=== PATIENT | male | born 1965 | race Caucasian/White ===

== ENCOUNTER 2016-03-18 08:10 | Inpatient (IN) | payer OTHER ==
[2016-03-18] VITALS (9 sets, daily range): BP systolic 84–120; BP diastolic 48–67
[~2016-03-18] VITALS: Ht 182.9 cm; Wt 70.0 kg
--- NOTE | 2016-03-18 10:13 | DIAGNOSTIC IMAGING REPORT ---
PROCEDURE: XR FOREARM - LEFT INDICATION: CELLULITIS TECHNIQUE: AP and lateral views. COMPARISON: None. FINDINGS: Osseous structures are normal. Soft tissue swelling, no foreign bodies. IMPRESSION: 1. Normal left forearm. Soft tissue swelling.
--- NOTE | 2016-03-18 11:37 | DIAGNOSTIC IMAGING REPORT ---
PROCEDURE: US SOFT TISSUE ANYWHERE INDICATION: SWOLLEN LEFT ARM WITH INFECTION TECHNIQUE: Carr scale and color Doppler sonographic images of the ulnar aspect of the left proximal forearm. COMPARISON: Comparison made radiographs of the left forearm earlier today (03/18/2016). FINDINGS: There is a large 8.7 x 3.2 x 4.3 cm ovoid hypoechoic heterogeneous area in the proximal ulnar aspect of the left forearm. This is associated increased vascularity, but no evidence of significant fluid. Thickened linear areas of signal in the lesion compatible with chronic thickening and superficial venous structures. IMPRESSION: 1. There is a large 8.7 x 3.2 x 4.3 cm hypoechoic heterogeneous area in the proximal left forearm consistent with phlegmon or hematoma. 2. Findings discussed with Dr. Jimy Weaver
--- NOTE | 2016-03-18 12:10 | ED CLINICAL REPORT ---
Clinical Report - Physicians/Mid Levels [facility] [address] [place] [address] 03/18/2016 8:12 Patient: TAYLOR PINTO III Time Seen: 09:39 Mar 18 2016. Arrived- By private vehicle. Historian- patient. CPT: ER phys charges level 5 (#[id number]). HISTORY OF PRESENT ILLNESS Chief Complaint: Chief Complaint- ( Left Forearm swelling due to heroin use.). and Injury to left forearm. 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 ( IVDA heroin). Patient is experiencing severe pain. No other injury. REVIEW OF SYSTEMS The patient has had swelling. No tingling, numbness, weakness, suspected foreign body or skin laceration. No fatigue, fever, muscle aches, mouth sores or sore throat. No calf pain, chest pain, cough, difficulty breathing or abdominal pain. No diarrhea, nausea, vomiting, joint pain or weakness. No diabetic symptoms, easy bruising or difficulty with urination. The patient has had chills and skin rash and experienced sweats. All systems otherwise negative, except as recorded above. PAST HISTORY See nurses notes. Tetanus immunization status is up-to-date. Medications: None. Allergies: None. SOCIAL HISTORY History of drug use: heroin, methamphetamines. ADDITIONAL NOTES The nursing notes have been reviewed. PHYSICAL EXAM Vital Signs: 03/18/2016 08:19 BP: 122/77. HR: 104. RR: 14. O2 saturation: 100%. Temp: 98.5 F. Pain level now: 10/02. Appearance: Alert. Appears to be in pain. Patient in moderate distress. Head: Head atraumatic. ENT: Pharynx normal. Neck: Normal inspection. Neck supple. C-spine non-tender. CVS: Normal heart rate and rhythm. Heart sounds normal. Pulses normal. No cardiac murmur. Respiratory: No respiratory distress. Breath sounds normal. Chest nontender. Abdomen: Soft and nontender. Bowel sounds normal. Back: Normal inspection. No tenderness. ROM normal. Skin: Moderate, well-demarcated, erythematous, tender skin rash located on the left arm (Cellulitis). Extremities: Left forearm: severe erythema and tenderness and moderate swelling located in the proximal, mid and distal forearm. Neurovascular intact distally. No ecchymosis or deformity. Extremities otherwise negative. Neuro, Vascular and Tendons: Vascular status intact. Sensation intact. Motor intact. Tendon function intact. Neuro: Oriented X 3. No motor deficit. No sensory deficit. Reflexes normal. (No passive ROM tenderness and distal pulses 2+.). LABS, X-RAYS, AND EKG X-Rays: Left forearm negative. Note - Special Studies: US of the left forearm :8 by 4 by 3 phlegmon without abscess. Laboratory Tests: UA-Culture if indicated: (ENDER: 03/18/2016 10:15) ( MsgRcvd 03/18/2016 11:04) Final results Test Result Flag Units (Reference) URINE COLOR YELLOW URINE APPEARANCE CLEAR URINE GLUCOSE NEGATIVE (NEGATIVE) URINE BILIRUBIN NEGATIVE (NEGATIVE) URINE KETONE NEGATIVE (NEGATIVE) URINE SPECIFIC GRAVITY >= 1.030 (1.010-1.030) URINE PH 5.5 (5.0-8.0) URINE PROTEIN 1+ (NEGATIVE) URINE UROBILINOGEN 0.2 EU/dL (0.2-1.0) URINE NITRITE NEGATIVE (NEGATIVE) URINE BLOOD TRACE-LYSED (NEGATIVE) URINE LEUK ESTERASE NEGATIVE (NEGATIVE) URINE RBC NONE SEEN rbc/hpf (0-1) URINE WBC 1-3 wbc/hpf (0-1) URINE EPITHELIAL CELLS NONE SEEN EPI/hpf (0-5) URINE BACTERIA FEW (1+) (NONE SEEN) URINE COMMENT CULT NOT INDICATED 2+ MUCOUSURINE CULTURES ARE SET-UP BASED ON THE FOLLOWING CRITERIA:POSITIVE NITRITEPOSITIVE LEUKOCYTE ESTERASEGREATER THAN 10 WHITE BLOOD CELLSMODERATE (2+) OR GREATER BACTERIA CBC w Diff: (ENDER: 03/18/2016 10:40) ( MsgRcvd 03/18/2016 12:11) Final results Test Result Flag Units (Reference) WHITE BLOOD COUNT 23.1 H K/uL (4.5-11.5) RED BLOOD COUNT 4.61 M/uL (4.50-5.90) HEMOGLOBIN 12.5 L gm/dL (13.5-17.5) HEMATOCRIT 38.7 L % (41.0-53.0) MEAN CELL VOLUME 84 fL (80-100) MEAN CORPUSCULAR HGB 27 pg (26-34) MEAN CORPUSCULAR HGB CONC 32 g/dL (31-37) RED CELL DISTRIBUTION WIDTH 15.9 H % (11.6-14.8) PLATELET COUNT 468 H K/uL (150-400) POLY % 69 % (50-75) BAND % 4 % (0-8) LYMPH 17 L % (25-40) MONO 9 % (3-14) EOSINOPHIL % 0 % (0-4) BASOPHIL % 1 % (0-2) METAMYELOCYTE % 0 % (0-1) MYELOCYTE 0 % (0-1) OTHER CELL TYPE 0 POIKILOCYTOSIS 1+ ANISOCYTOSIS 1+ Urine Drug Screen: (ENDER: 03/18/2016 10:15) ( [facility] [place]/18[place] 11:51) Final results Test Result Flag Units (Reference) AMPHETAMINE/METHAMPHETAMINE POSITIVE H (NEGATIVE) BARBITURATE NEGATIVE (NEGATIVE) BENZODIAZEPINE NEGATIVE (NEGATIVE) CANNABINOID NEGATIVE (NEGATIVE) COCAINE NEGATIVE (NEGATIVE) ECSTASY POSITIVE H (NEGATIVE) METHADONE NEGATIVE (NEGATIVE) OPIATE POSITIVE H (NEGATIVE) The urine drug screen is a qualitative screening test fordrug overdose and abuse. All screen results should beconsidered as presumptive.Drugs screened for are as follows:BenzodiazepinesCocaineAmphetamines/MetamphetaminesTHC (Tetrahydrocannabinol)OpiatesBarbituratesEcstasyMethadonePositive results are unconfirmed. For confirmation, notifythe lab for the specimen to be sent to the reference lab.All confirmations must be performed by a differentmethodology.The ingestion of natural herbal and plant productscontaining Ephedra/Ephedra metabolites can produce in urineone or more substances capable of cross reacting withamphetamine/methamphetamine immunoassays. These testsprovide a preliminary result only. A more specificalternative chemical method must be used to obtain aconfirmed analytical result. CMP: (ENDER: 03/18/2016 10:40) ( [facility] 03/18/2016 11:37) Final results Test Result Flag Units (Reference) GLUCOSE 106 mg/dL (70-110) BUN 16 mg/dL (7-18) CREATININE 0.9 mg/dL (0.6-1.3) Estimated GFR >60 mL/min Estimated GFR- >60 mL/min Note: Persistent reduction over 3 months in eGFR<60 mL/min/1.73 m2 defines CKD. Patients with eGFR values>=60 mL/min/1.73 m2 may also have CKD if evidence ofpersistent proteinuria. Additional information may be foundat www.kidney.org. SODIUM 133 L mmol/L (136-145) POTASSIUM 3.9 mmol/L (3.5-5.1) CHLORIDE 95 L mmol/L (98-107) CARBON DIOXIDE 28 mmol/L (21-32) CALCIUM 9.4 mg/dL (8.5-10.1) TOTAL PROTEIN 8.7 H g/dL (6.4-8.2) ALBUMIN 3.2 L g/dL (3.3-5.0) BILIRUBIN, TOTAL 1.0 mg/dL (0.0-1.0) ALKALINE PHOSPHATASE 128 H U/L (46-116) AST (SGOT) 33 U/L (15-37) ALT (SGPT) 49 U/L (12-78) CPK 112 U/L (24-260) . PROGRESS AND PROCEDURES Course of Care: Aspiration of left forearm infection; Skin prepped with alcohol. 18g needle placed in the left forearm. 3cc of green purulent material withdrawn. 12:47 03/18/16. discussed with Dr. Alexander and he will come to the ER to evaluate the patient. He requests medical back up on admission for evaluation the patient's opioid dependence and use. Discussed case with on-call health care provider, (Chevy). Reviewed test results. Agreed upon treatment plan. Health care provider will see patient in ED. Patient/family counseled. Old medical records ordered. Disposition orders written. Disposition: Admitted to Acute Care. CLINICAL IMPRESSION Substance abuse problems: abuse of opiates, methamphetamine and hallucinogens. Large abscess and cellulitis of the left forearm. IVDA heroin. (Electronically signed by Jimy Weaver MD 03/19/2016 11:18)
--- NOTE | 2016-03-18 12:10 | ED CLINICAL REPORT ---
Clinical Report - Physicians/Mid Levels [facility] [address] [place] [address] 03/18/2016 8:12 Patient: TAYLOR PINTO III Time Seen: 09:39 Mar 18 2016. Arrived- By private vehicle. Historian- patient. CPT: ER phys charges level 5 (#[id number]). HISTORY OF PRESENT ILLNESS Chief Complaint: Chief Complaint- ( Left Forearm swelling due to heroin use.). and Injury to left forearm. 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 ( IVDA heroin). Patient is experiencing severe pain. No other injury. REVIEW OF SYSTEMS The patient has had swelling. No tingling, numbness, weakness, suspected foreign body or skin laceration. No fatigue, fever, muscle aches, mouth sores or sore throat. No calf pain, chest pain, cough, difficulty breathing or abdominal pain. No diarrhea, nausea, vomiting, joint pain or weakness. No diabetic symptoms, easy bruising or difficulty with urination. The patient has had chills and skin rash and experienced sweats. All systems otherwise negative, except as recorded above. PAST HISTORY See nurses notes. Tetanus immunization status is up-to-date. Medications: None. Allergies: None. SOCIAL HISTORY History of drug use: heroin, methamphetamines. ADDITIONAL NOTES The nursing notes have been reviewed. PHYSICAL EXAM Vital Signs: 03/18/2016 08:19 BP: 122/77. HR: 104. RR: 14. O2 saturation: 100%. Temp: 98.5 F. Pain level now: 10/02. Appearance: Alert. Appears to be in pain. Patient in moderate distress. Head: Head atraumatic. ENT: Pharynx normal. Neck: Normal inspection. Neck supple. C-spine non-tender. CVS: Normal heart rate and rhythm. Heart sounds normal. Pulses normal. No cardiac murmur. Respiratory: No respiratory distress. Breath sounds normal. Chest nontender. Abdomen: Soft and nontender. Bowel sounds normal. Back: Normal inspection. No tenderness. ROM normal. Skin: Moderate, well-demarcated, erythematous, tender skin rash located on the left arm (Cellulitis). Extremities: Left forearm: severe erythema and tenderness and moderate swelling located in the proximal, mid and distal forearm. Neurovascular intact distally. No ecchymosis or deformity. Extremities otherwise negative. Neuro, Vascular and Tendons: Vascular status intact. Sensation intact. Motor intact. Tendon function intact. Neuro: Oriented X 3. No motor deficit. No sensory deficit. Reflexes normal. (No passive ROM tenderness and distal pulses 2+.). LABS, X-RAYS, AND EKG X-Rays: Left forearm negative. Note - Special Studies: US of the left forearm :8 by 4 by 3 phlegmon without abscess. Laboratory Tests: UA-Culture if indicated: (ENDER: 03/18/2016 10:15) ( MsgRcvd 03/18/2016 11:04) Final results Test Result Flag Units (Reference) URINE COLOR YELLOW URINE APPEARANCE CLEAR URINE GLUCOSE NEGATIVE (NEGATIVE) URINE BILIRUBIN NEGATIVE (NEGATIVE) URINE KETONE NEGATIVE (NEGATIVE) URINE SPECIFIC GRAVITY >= 1.030 (1.010-1.030) URINE PH 5.5 (5.0-8.0) URINE PROTEIN 1+ (NEGATIVE) URINE UROBILINOGEN 0.2 EU/dL (0.2-1.0) URINE NITRITE NEGATIVE (NEGATIVE) URINE BLOOD TRACE-LYSED (NEGATIVE) URINE LEUK ESTERASE NEGATIVE (NEGATIVE) URINE RBC NONE SEEN rbc/hpf (0-1) URINE WBC 1-3 wbc/hpf (0-1) URINE EPITHELIAL CELLS NONE SEEN EPI/hpf (0-5) URINE BACTERIA FEW (1+) (NONE SEEN) URINE COMMENT CULT NOT INDICATED 2+ MUCOUSURINE CULTURES ARE SET-UP BASED ON THE FOLLOWING CRITERIA:POSITIVE NITRITEPOSITIVE LEUKOCYTE ESTERASEGREATER THAN 10 WHITE BLOOD CELLSMODERATE (2+) OR GREATER BACTERIA CBC w Diff: (ENDER: 03/18/2016 10:40) ( MsgRcvd 03/18/2016 12:11) Final results Test Result Flag Units (Reference) WHITE BLOOD COUNT 23.1 H K/uL (4.5-11.5) RED BLOOD COUNT 4.61 M/uL (4.50-5.90) HEMOGLOBIN 12.5 L gm/dL (13.5-17.5) HEMATOCRIT 38.7 L % (41.0-53.0) MEAN CELL VOLUME 84 fL (80-100) MEAN CORPUSCULAR HGB 27 pg (26-34) MEAN CORPUSCULAR HGB CONC 32 g/dL (31-37) RED CELL DISTRIBUTION WIDTH 15.9 H % (11.6-14.8) PLATELET COUNT 468 H K/uL (150-400) POLY % 69 % (50-75) BAND % 4 % (0-8) LYMPH 17 L % (25-40) MONO 9 % (3-14) EOSINOPHIL % 0 % (0-4) BASOPHIL % 1 % (0-2) METAMYELOCYTE % 0 % (0-1) MYELOCYTE 0 % (0-1) OTHER CELL TYPE 0 POIKILOCYTOSIS 1+ ANISOCYTOSIS 1+ Urine Drug Screen: (ENDER: 03/18/2016 10:15) ( [facility] [place] 11:51) Final results Test Result Flag Units (Reference) AMPHETAMINE/METHAMPHETAMINE POSITIVE H (NEGATIVE) BARBITURATE NEGATIVE (NEGATIVE) BENZODIAZEPINE NEGATIVE (NEGATIVE) CANNABINOID NEGATIVE (NEGATIVE) COCAINE NEGATIVE (NEGATIVE) ECSTASY POSITIVE H (NEGATIVE) METHADONE NEGATIVE (NEGATIVE) OPIATE POSITIVE H (NEGATIVE) The urine drug screen is a qualitative screening test fordrug overdose and abuse. All screen results should beconsidered as presumptive.Drugs screened for are as follows:BenzodiazepinesCocaineAmphetamines/MetamphetaminesTHC (Tetrahydrocannabinol)OpiatesBarbituratesEcstasyMethadonePositive results are unconfirmed. For confirmation, notifythe lab for the specimen to be sent to the reference lab.All confirmations must be performed by a differentmethodology.The ingestion of natural herbal and plant productscontaining Ephedra/Ephedra metabolites can produce in urineone or more substances capable of cross reacting withamphetamine/methamphetamine immunoassays. These testsprovide a preliminary result only. A more specificalternative chemical method must be used to obtain aconfirmed analytical result. CMP: (ENDER: 03/18/2016 10:40) ( [facility] [place]18[place] 11:37) Final results Test Result Flag Units (Reference) GLUCOSE 106 mg/dL (70-110) BUN 16 mg/dL (7-18) CREATININE 0.9 mg/dL (0.6-1.3) Estimated GFR >60 mL/min Estimated GFR- >60 mL/min Note: Persistent reduction over 3 months in eGFR<60 mL/min/1.73 m2 defines CKD. Patients with eGFR values>=60 mL/min/1.73 m2 may also have CKD if evidence ofpersistent proteinuria. Additional information may be foundat www.kidney.org. SODIUM 133 L mmol/L (136-145) POTASSIUM 3.9 mmol/L (3.5-5.1) CHLORIDE 95 L mmol/L (98-107) CARBON DIOXIDE 28 mmol/L (21-32) CALCIUM 9.4 mg/dL (8.5-10.1) TOTAL PROTEIN 8.7 H g/dL (6.4-8.2) ALBUMIN 3.2 L g/dL (3.3-5.0) BILIRUBIN, TOTAL 1.0 mg/dL (0.0-1.0) ALKALINE PHOSPHATASE 128 H U/L (46-116) AST (SGOT) 33 U/L (15-37) ALT (SGPT) 49 U/L (12-78) CPK 112 U/L (24-260) . PROGRESS AND PROCEDURES Course of Care: Aspiration of left forearm infection; Skin prepped with alcohol. 18g needle placed in the left forearm. 3cc of green purulent material withdrawn. 12:47 03/18/16. discussed with Dr. Alexander and he will come to the ER to evaluate the patient. He requests medical back up on admission for evaluation the patient's opioid dependence and use. Discussed case with on-call health care provider, (Chevy). Reviewed test results. Agreed upon treatment plan. Health care provider will see patient in ED. Patient/family counseled. Old medical records ordered. Disposition orders written. Disposition: Admitted to Acute Care. CLINICAL IMPRESSION Substance abuse problems: abuse of opiates, methamphetamine and hallucinogens. Large abscess and cellulitis of the left forearm. IVDA heroin. (Electronically signed by Jimy Weaver MD 03/19/2016 11:18)
--- NOTE | 2016-03-18 12:10 | ED ORDER SUMMARY ---
..... Patient: TAYLOR PINTO W III [facility]Sheet [facility] VisitID: [id number] [place] [address] 50y, M Registration Date/Time: 03/18/2016 ORDER SHEET Weight: 79.3 kg (stated) Allergies: None GENERAL ORDERS: Blood Culture (No) (N/A) Urgent (09:46 03/18/2016 Emile BRODERICK) (Ack 10:23 Domi) (10:59 JBoardley R.N.) Forearm Left Urgent (09:46 03/18/2016 Emile BRODERICK) (Ack 10:23 Domi) (10:59 JBoardley R.N.) US Soft Tissue Anywhere (left forearm r/o abscess) (left forearm r/o abscess) Urgent (09:47 03/18/2016 Emile BRODERICK) (Ack 10:23 Domi) (10:59 JBoardley R.N.) CBC w Diff Urgent (09:47 03/18/2016 Emile BRODERICK) (Ack 10:23 Domi) (10:59 JBoardley R.N.) Urine Drug Screen Urgent (09:49 03/18/2016 Emile BRODERICK) (Ack 10:23 Domi) (10:59 JBoardley R.N.) CMP Urgent (09:49 03/18/2016 Emile BRODERICK) (Ack 10:23 Domi) (10:59 JBoardley R.N.) CPK Urgent (09:49 03/18/2016 Emile BRODERICK) (Ack 10:23 Domi) (10:59 JBoardley R.N.) UA-Culture if indicated Urgent (09:49 03/18/2016 Emile BRODERICK) (Ack 10:23 Domi) (10:59 JBoardley R.N.) Culture, Wound Deep (Arm) (swab) Urgent (12:35 03/18/2016 Emile BRODERICK) (13:05 LMuller) MEDICATION ORDERS: IV FLUIDS: IV NS : initial bolus none -, then 250 mL/hr for 4h (NOW); Routine (09:45 03/18/2016 Emile BRODERICK) (Ack 9:58 JBoardley R.N.) (11:00 JBoardley R.N.) Toradol IV 30 mg (NOW) (09:46 03/18/2016 Emile BRODERICK) (Ack 9:58 JBoardleroxanne R.N.) (11:00 TITAoardley R.N.) Vancomycin IV 25 mg/kg (NOW) (12:34 03/18/2016 Emile BRODERICK) (Ack 12:36 JBoardley R.N.) (13:06 JBoardley R.N.) ORDER SHEET NOTES: [Electronically signed by Adam Marroquin R.N. (15:40 03/18/2016)] [Electronically signed by Jimy Weaver MD (11:18 03/19/2016)] [Electronically locked/signed by Adam Marroquin R.N. (15:40 03/18/2016)]
--- NOTE | 2016-03-18 12:10 | ED NURSING NOTES ---
Clinical Report - Nurses [facility] [address] [place] [address] 03/18/2016 8:12 Patient: TAYLOR PINTO III TRIAGE Triage time 08:19. Acuity: LEVEL 4. Chief Complaint: Location of symptoms- left forearm. 08:19 03/18/16. 08:19 03/18/16. ( Left Forearm swelling due to heroin use.). --08:25 Adam Marroquin R.N. 08:19 03/18/16. BP: 122/77. HR: 104. RR: 14. O2 saturation: 100% on room air. Temp: 98.5 F (oral). Pain level now: 10/02. --08:25 Adam Marroquin R.N. Acuity: LEVEL 3. --10:34 Adam Marroquin R.N. Weight: 79.3 kg stated. Height/Length: 71 inches Per Patient. BMI: 24.4. --08:23 Adam Marroquin R.N. Medications None. --08:22 Adam Marroquin R.N. Medication/allergy information source: the patient. --08:25 Adam Marroquin R.N. Allergies None. --08:22 Adam Marroquin R.N. History Arrived by private vehicle. Historian: patient. Accompanied by family. Primary physician (NONE). 08:19 03/18/16. No injury occurred. 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 PAST MEDICAL HX: Tetanus status: up-to-date. Immunizations not up to date. SOCIAL HX: Current every day light tobacco smoker (cigarette)- less than 1/2 a pack per day. Occasional alcohol use. History of heavy drug use: heroin. (Relapsed after back surgery). No infectious disease exposure. ABUSE ASSESSMENT: No report of abuse. FALL RISK ASSESSMENT: Fall risk assessment completed. No fall risk identified. NUTRITIONAL RISK ASSESSMENT: The nutritional risk assessment revealed no deficiencies. FUNCTIONAL ASSESSMENT: Functional assessment: no impairments noted. LEARNING NEEDS ASSESSMENT: The learning needs assessment revealed no barriers. SKIN INTEGRITY ASSESSMENT: Skin integrity risk assessment completed. No skin integrity risk identified. --08:25 Adam Marroquin R.N. PROBLEMS: Back Pain. Substance Abuse. --08:22 Adam Marroquin R.N. ADDITIONAL SURGERIES: Back Surgery [2015]. --08:22 Adam Marroquin R.N. Assessment 08:19 03/18/16. --08:25 Adam Marroquin R.N. Interventions 08:03/18/16. 08:20 03/18/16. ID and allergy band on patient. To treatment room. --08:25 Adam Marroquin R.N. PHYSICAL ASSESSMENT 08:03/18/16. Ambulatory to room. GENERAL / NEURO / PSYCH: Oriented X 4. Appears in pain. EXTREMITIES: Neuro-vascular status intact to the extremity. Left forearm: tenderness, swelling and erythema. SKIN: Skin is warm and dry. --08:23 Adam Marroquin R.N. NURSING PROGRESS NOTES 08:03/18/16. Extremity elevated. Patient gowned. Reassurance given. Patient identifiers checked. Call light placed in reach. Side rails up x 2. Bed placed in lowest position. Brakes of bed on. Brakes of chair on. --08:23 Adam Marroquin R.N. 09:10 03/18/16. Patient and family informed about reason for wait and about plan of care. --09:10 Adam Marroquin R.N. 09:13 03/18/16. --09:13 Adam Marroquin R.N. 09:12 03/18/16. BP: 117/70. HR: 99. RR: 14. O2 saturation: 99% on room air. --09:13 Adam Marroquin R.N. 10:27 03/18/2016 Two (2) unsuccessful IV access attempts including the right forearm. Applied bandaid. --10:32 Adam Marroquin R.N. 10:49 03/18/2016 Site #1 started via IV in the right forearm with an 24g angiocath, with aseptic technique and good blood return; two attempts. Blood drawn: rainbow set and cultures x1. Labeled in the presence of the patient and sent to the lab. Saline lock flushed with 10 mL saline. --10:59 Adam Marroquin R.N. 10:49 03/18/2016 Started bag #1 1000 mL IV Fluids IV NS (Saline); at 250 mL/hr over 4 hour(s) via site #1. Allergies verified and confirmed 5 rights. IV patency established. IV site checked: no pain, redness, or swelling. IV flushed thoroughly pre- and post-medication administration. Completed per protocol. --11:00 Adam Marroquin R.N. 11:00 03/18/2016 Toradol IVP 30 mg given over 2 minute(s) via site #1. Allergies verified and confirmed 5 rights. IV patency established. IV site checked: no pain, redness, or swelling. IV flushed thoroughly pre- and post-medication administration. IVP given by RN. --11:00 Adam Marroquin R.N. 11:00 03/18/16. BP: 113/72. HR: 95. RR: 14. O2 saturation: 99% on room air. Temp: 98.4 F (oral). --11:00 Adam Marroquin R.N. 11:00 03/18/16. --11:00 Adam Marroquin R.N. 11:03/18/16. ( US completed). --11:01 Adam Marroquin R.N. 12:47 03/18/16. ( Culture taken from pts left arm by . Pt to be admitted.). --12:47 Adam Marroquin R.N. 12:48 03/18/16. --12:48 Adam Marroquin R.N. 12:47 03/18/16. BP: 118/69. HR: 98. RR: 18. O2 saturation: 99% on room air. Temp: 98.3 F (oral). --12:48 Adam Marroquin R.N. 12:48 03/18/16. The patient is calm, resting quietly and sleeping. --12:48 Adam Marroquin R.N. 12:48 03/18/16. Reassessment after medication administered. Overall patient status is improved- he states feels better. --12:48 Adam Marroquin R.N. 13:03/18/2016 Started 2 gm of Vancomycin IVPB in bag #1 530 mL; at 150 mL/hr over 3 hour(s) via site #1; Allergies verified and confirmed 5 rights. IV patency established. IV site checked: no pain, redness, or swelling. IV flushed thoroughly pre- and post-medication administration. Completed per protocol. --13:06 Adam Marroquin R.N. 13:15 03/18/16. ( Ortho MD at bedside). --13:15 Adam Marroquin R.N. DISPOSITION / DISCHARGE 14:21 03/18/16. BP: 118/72. HR: 96. RR: 16. O2 saturation: 99% on room air. Temp: 98.2 F (oral). --14:22 Adam Marroquin R.N. 14:22 03/18/16. The goals identified in the patient's plan of care were met. No learning barriers present. Transported via stretcher by transport team with IV. Report was given to a nurse. Report included patient's care, treatment, medications, reviewed medication reconcilliation, and condition (including any recent changes or anticipated changes). All questions were answered. Report was acknowledged and care was transferred. Bed obtained and ready. Patient's personal items include, no weapons, no meds, no money; items were placed in belongings bag, given to the patient and transported with the patient. FALL RISK ASSESSMENT: Fall risk assessment completed. No fall risk identified. --14:22 Adma Marroquin R.N. 14:23 03/18/16. ( NS infused 400 mLs, 600 LTC Vanco infused 125 mLs 375mLs LTC). --14:23 Adam Marroquin R.N. Departure time: :23. --14:23 Adam Marroquin R.N. 14:23 03/18/2016 Site #[address] upon admission; patent. --15:40 Adam Marroquin R.N. Locked/Released at 03/18/2016 15:40 by Adam Marroquin R.N.
--- NOTE | 2016-03-18 12:10 | ED ORDER SUMMARY ---
..... Patient: TAYLOR PINTO W III OrderSheet [facility] VisitID: [id number] [place] [address] 50y, M Registration Date/Time: 03/18/2016 ORDER SHEET Weight: 79.3 kg (stated) Allergies: None GENERAL ORDERS: Blood Culture (No) (N/A) Urgent (09:46 03/18/2016 Emile BRODERICK) (Ack 10:23 Domi) (10:59 JBoardley R.N.) Forearm Left Urgent (09:46 03/18/2016 Emile BRODERICK) (Ack 10:23 Domi) (10:59 JBoardley R.N.) US Soft Tissue Anywhere (left forearm r/o abscess) (left forearm r/o abscess) Urgent (09:47 03/18/2016 Emile BRODERICK) (Ack 10:23 Domi) (10:59 JBoardley R.N.) CBC w Diff Urgent (09:47 03/18/2016 Emile BRODERICK) (Ack 10:23 Domi) (10:59 JBoardley R.N.) Urine Drug Screen Urgent (09:49 03/18/2016 Emile BRODERICK) (Ack 10:23 Domi) (10:59 JBoardley R.N.) CMP Urgent (09:49 03/18/2016 Emile BRODERICK) (Ack 10:23 Domi) (10:59 JBoardley R.N.) CPK Urgent (09:49 03/18/2016 Emile BRODERICK) (Ack 10:23 Domi) (10:59 JBoardley R.N.) UA-Culture if indicated Urgent (09:49 03/18/2016 Emile BRODERICK) (Ack 10:23 Domi) (10:59 JBoardley R.N.) Culture, Wound Deep (Arm) (swab) Urgent (12:35 03/18/2016 Emile BRODERICK) (13:05 LMuller) MEDICATION ORDERS: IV FLUIDS: IV NS : initial bolus none -, then 250 mL/hr for 4h (NOW); Routine (09:45 03/18/2016 Emile BRODERICK) (Ack 9:58 JBoardley R.N.) (11:00 JBoardley R.N.) Toradol IV 30 mg (NOW) (09:46 03/18/2016 Emile BRODERICK) (Ack 9:58 JBoardleroxanne R.N.) (11:00 TITAoardley R.N.) Vancomycin IV 25 mg/kg (NOW) (12:34 03/18/2016 Emile BRODERICK) (Ack 12:36 JBoardley R.N.) (13:06 JBoardley R.N.) ORDER SHEET NOTES: [Electronically signed by Adam Marroquin R.N. (15:40 03/18/2016)] [Electronically signed by Jimy Weaver MD (11:18 03/19/2016)] [Electronically locked/signed by Adam Marroquin R.N. (15:40 03/18/2016)]
--- NOTE | 2016-03-18 14:32 | CONSULTATION REPORT ---
DATE OF CONSULTATION: 03/18/2016 HISTORY OF PRESENT ILLNESS: The patient is a 50-year-old narcotic addict who has been injecting in his left forearm and has developed an abscess in the mid portion of his left forearm, on the dorsal surface. He has had swelling and pain for about 3 days now. He has had a previous abscess in his right forearm several years ago. He is admitted at this time for incision and drainage in the abscess of his left forearm. He had an ultrasound in the emergency department at [facility] Department which showed a 4 x 8 loculated possible abscess. Cultures have been taken in the emergency room from a 3 mL aspiration. MEDICAL/SURGICAL HISTORY: Positive for previous back surgery. Previous forearm surgery. The patient has not been under any medical care in recent years. MEDICATIONS: 1. He takes no medication. ALLERGIES: 1. HE HAS NO ALLERGIES. REVIEW OF SYSTEMS: Otherwise negative. PHYSICAL EXAMINATION: GENERAL: He is oriented to person, place, and generally time. HEENT: Eyes, nose and throat are within normal limits. CHEST: Clear. HEART: Regular rate and rhythm. ABDOMEN: Soft, nontender, without masses. EXTREMITIES: Reveal a swollen, erythematous left forearm. He has good finger extension with minimal discomfort. He has normal sensation and pulses. His temperature is normal. LAB/IMAGING: His white count is over 20,000. X-rays are negative. IMPRESSION: 1. Abscess, left forearm, secondary to drug injection PLAN: The patient is going to be taken to the operating room this afternoon for incision and drainage. Discussed with the patient possible surgical complications, including but not limited to further infection, nerve and vessel injury, deep venous thrombosis, heart attack, stroke, and , pneumonia. The patient understands and agrees.
--- NOTE | 2016-03-18 14:56 | Progress Note ---
Subjective General Medical consultation Patient Name: Maik Elizondo III Admission Date: March 18, 2016 Consultation Date: March 18, 2016 Primary Care Provider: None Attending Physician: Anabelle Alexander M.D. Admitting Physician: Anabelle Alexander M.D. Consulting Physician: Sharif Burton M.D. SUBJECTIVE Historian: Patient Reliability: Fair Chief Complaint: Painful, swollen left forearm History of Present Illness: The patient is a 50-year-old white male with a significant past medical history of illicit drug use-heroin, methamphetamine who presented to [facility] emergency department secondary to complaints of painful swollen left forearm approximately 3 days duration. [facility] ER evaluation was consistent with abscess/cellulitis left forearm secondary to injection of drug use. Secondary to the above, the patient was admitted by Anabelle Alexander M.D. (orthopedics) with medical comanagement by the hospital service, Sharif Burton M.D. for further evaluation and treatment. PAST MEDICAL HISTORY Illnesses: 1. Illicit drug use-heroin, methamphetamine 2. Nicotine dependence smoking Allergies: 1. No Known Drug Allergies Medications: 1. None Surgery: 1. Back surgery 2. Right arm surgery Injuries: 1. Back injury 2010 Hospitalizations: 1. For above surgery and medical problems FAMILY HISTORY Parents: 1. Father, Maik, living, 67, multiple medical problems, 2. Mother, Jessica, living, 67, CHF Siblings: 1. The patient has 3 male siblings all which are in good health Children: 1. Male, living, 27, healthy 2. Male, living, 20, healthy 3. Female living, 30, healthy Other significant family history: None SOCIAL HISTORY 1. Marital Status: 2. Uatsdin: None 3. Education: GED 4. Employment History: [employer] disabled 5 years secondary to back injury, currently relies on [employer] for support 5. Occupational health exposures: None HABITS 1. Tobacco: 30 pack years, one half pack per day 2. Drugs: Heroin 1 g per day, intermittent methamphetamine 3. Alcohol: None 4. Caffeine: Rare usage HEALTH SUPERVISION Item/Test 1. No recent IMMUNIZATIONS: 1. Pneumococcal: No previous 2. Influenza: No previous 3. Tetanus: Tetanus shot obtained within the past 10 years, date unknown REVIEW OF SYSTEMS Remarkable for those things stated in the history of present illness and past medical history. Seventeen point review of system completed with the following notable findings: General: Fatigue, weakness Skin: Rash Eyes: Pain, redness Ears: Tinnitus Mouth: Dental problems Physical Exam General Appearance Alert, Oriented X3, Cooperative, No acute distress HEENT Atraumatic, PERRLA, EOMI, Moist mucous membranes Lungs Scattered rhonchi Neck Supple, No JVD Cardiovascular Regular rate and rhythm, Normal S1 and S2, No murmurs, gallops, rubs Abdomen Normal bowel sounds, Soft, No tenderness Extremities (L) forearm with edema/induration/erythema. Tender to palpation. See photo documentation. Skin See extremities. Neurological Grossly normal Psych/Mental Status Mental status normal, Mood normal LAB Results Laboratory Tests 03/18 03/18 03/18 1040 1015 0949 Chemistry Plasma Sodium (136 - 145 mmol/L) 133 Plasma Potassium (3.5 - 5.1 mmol/L) 3.9 Plasma Chloride (98 - 107 mmol/L) 95 CO2 (Enzymatic) (21 - 32 mmol/L) 28 BUN (7 - 18 mg/dL) 16 Creatinine (0.6 - 1.3 mg/dL) 0.9 Est GFR ( Amer) (mL/min) >60 Est GFR (Non-Af Amer) (mL/min) >60 Glucose (70 - 110 mg/dL) 106 Plasma Calcium (8.5 - 10.1 mg/dL) 9.4 Total Bilirubin (0.0 - 1.0 mg/dL) 1.0 AST (15 - 37 U/L) 33 ALT (12 - 78 U/L) 49 Alkaline Phosphatase (46 - 116 U/L) 128 Creatine Kinase (24 - 260 U/L) 112 Cancelled Total Protein (6.4 - 8.2 g/dL) 8.7 Albumin (3.3 - 5.0 g/dL) 3.2 Hematology WBC (4.5 - 11.5 K/uL) 23.1 RBC (4.50 - 5.90 M/uL) 4.61 Hgb (13.5 - 17.5 gm/dL) 12.5 Hct (41.0 - 53.0 %) 38.7 MCV (80 - 100 fL) 84 MCH (26 - 34 pg) 27 RDW (11.6 - 14.8 %) 15.9 Neut % (Auto) (50 - 75 %) 69 Lymph % (Auto) (25 - 40 %) 17 [place] % (Auto) (3 - 14 %) 9 Eos % (Auto) (0 - 4 %) 0 Baso % (Auto) (0 - 2 %) 1 Band Neutrophils % (0 - 8 %) 4 Metamyelocytes % (0 - 1 %) 0 Myelocytes (0 - 1 %) 0 Other Cell Type 0 Plt Count, EDTA (150 - 400 K/uL) 468 Poikilocytosis (manual 1+ Anisocytosis (manual) 1+ PUBS MCHC (31 - 37 g/dL) 32 Toxicology Urine Opiates Screen (NEGATIVE) POSITIVE Urine Methadone Screen (NEGATIVE) NEGATIVE Ur Barbiturates Screen (NEGATIVE) NEGATIVE U Amphetamin/Meth Scrn (NEGATIVE) POSITIVE MDMA (Ecstasy) Screen (NEGATIVE) POSITIVE U Benzodiazepines Scrn (NEGATIVE) NEGATIVE Urine Cocaine Screen (NEGATIVE) NEGATIVE U Cannabinoids Screen (NEGATIVE) NEGATIVE Urines Urine Color YELLOW Urine Appearance CLEAR Urine pH (5.0 - 8.0) 5.5 Ur Specific [place] (1.010 - 1.030) >= 1.030 Urine Protein (NEGATIVE) 1+ Urine Ketones (NEGATIVE) NEGATIVE Urine Blood (NEGATIVE) TRACE-LYSED Urine Nitrite (NEGATIVE) NEGATIVE Urine Bilirubin (NEGATIVE) NEGATIVE Urine Urobilinogen (0.2 - 1.0 EU/dL) 0.2 Ur Leukocyte Esterase (NEGATIVE) NEGATIVE Urine RBC (0 - 1 rbc/hpf) NONE SEEN Urine WBC (0 - 1 wbc/hpf) 1-3 Ur Epithelial Cells (0 - 5 EPI/hpf) NONE SEEN Urine Bacteria (NONE SEEN) FEW (1+) Urine Glucose (NEGATIVE) NEGATIVE Urine Comment CULT NOT INDICATED Microbiology Date/Time Procedure - Status Source Growth 03/18 1230 Deep Wound Culture - RECD ARM 03/18 1230 Deep Wound Culture - RECD ARM 03/18 1230 Gram Stain - RECD ARM 03/18 1145 Blood Culture - RECD BLOOD 03/18 1040 Blood Culture - RECD BLOOD Imaging Ultrasound Left Forearm IMPRESSION: 1. There is a large 8.7 x 3.2 x 4.3 cm hypoechoic heterogeneous area in the proximal left forearm consistent with phlegmon or hematoma. 2. Findings discussed with Dr. Jimy Weaver Dictated by: JEET BILLINGS MD D: CHACORTA;03/18/16 1137 Assessment and Plan Problem List 1. Cellulitis and abscess of upper arm and forearm Status Acute Onset Date Unknown Plan -Patient presents with findings of abscess/cellulitis left forearm -Patient admitted by orthopedics, Dr. Anabelle Alexander. -Dr. Alexander plans I&D abscess left forearm -Vancomycin/Zosyn until culture results obtained -Monitor -Wound care clinic referral postoperatively for outpatient follow-up of abscess I&D site 2. Illicit drug use Status Chronic Onset Date Unknown Plan -Patient presents with history of illicit drug use-heroin/methamphetamine -Placed on OP replacement therapy-methadone during patient's hospitalization -Encourage enrollment in drug treatment program post hospitalization -DC planning to see to aid in placement in treatment program 3. Nicotine dependence Status Chronic Onset Date Unknown Plan -Patient presents with findings of nicotine dependence-smoking/tobacco use disorder -Smoking cessation education -NicoDerm patch when necessary -Encourage smoking abstinence post discharge 4. Anemia Status Acute Onset Date Unknown Plan -Patient presents with mild anemia. -H&H: 12.5/38.7. MCV normal at 84 -Check iron studies, B12, folate -Monitor 5. Hyponatremia Status Acute Onset Date Unknown Plan -Patient presents with findings of hyponatremia -Mild, serum sodium 133 -Fluid restriction 1500 cc per day -Monitor Current status: Fair, unstable Anticipated discharge date: Anticipated discharge in 1-2 days with improved status Anticipated discharge placement: Home with wound care clinic follow-up Patient care time: Time spent in chart review, patient interview, physical exam, CPOE, and care documentation: 70 minutes Visit to patient today: 1 Complexity of care: High E&M Codes Inpatient Consult: Comp-High/[id number]
--- NOTE | 2016-03-18 14:56 | NUR ---
PATIENT ARRIVED TO FLOOR AT 1455. AMBULATED FROM STRETCHER TO BED. DENIES PAIN AT THIS TIME. REDNESS TO HAY. SURGERY SCHEDULED FOR 1600.
--- NOTE | 2016-03-18 15:51 | NUR ---
RECEIVED REPORT ON PT, CHLORHEXIDINE WASH TO LEFT ARM. OR CREW ARRIVED FOR PT, PT OFF TO THE O.R. WITH THE VANCOMYCION HANGING AND THE PIPERCILLIN WAS SENT TO O.R.
--- NOTE | 2016-03-18 16:52 | NUR ---
REC'D FROM OR; SPONT RESP. RESTLESS AND UNCO-OPERATIVE. ATTEMPTING TO SIT UP IN STRETCHER. DOESN'T ANSWER QUESTIONS VERBALLY. REPEATEDLY GIVEN INFO RE PLACE AND TIME;
--- NOTE | 2016-03-18 16:57 | NUR ---
Vancomycin dosing per pharmacy Treating cellulitis and abscess in left forearm; ultrasound identifies hematoma 8x3x4 cm; initial wound culture in ED - gram stain - gm positive cocci 2 +; to OR this afternoon for I & D; also on Zosyn WBC 23.1, bands 4, temperature afbrile target trough 10-20 mcg/ml Initial dose Vancomycin 2 gm given in ED to be followed with 1000 mg IV q8h. Measuring trough level 03/19/16 1130 - prior to 1200 dose (4th dose) - prior to steady state. Pharmacist will follow
--- NOTE | 2016-03-18 17:27 | NUR ---
REPORTS FEELING COLD; WARM BLANKET APPLIED. CMS=GOOD.LUE ELEVATED ON PILLOWS. INSTRUCTED TO TAKE DEEP BREATHS.
--- NOTE | 2016-03-18 17:49 | NUR ---
PT ARRIVED BACK TO ROOM AWAKE, ALERT AND APPROPRIATE. LEFT ARM IS WRAPPED WITH AN CORNELIA WRAP AND CLEAN DRY AND INTACT, PT HAS ARM ELEVATED ABOVE HEART AND THEN WAS PROPPED ON PILLOWS. PT C/O PAIN RATING 7/10, TORADOL IV AND DILAUDID PO GIVEN WILL CONTINUE TO MONITOR. ICE APPLIED TO EFFECTED EXTREMITY.
--- NOTE | 2016-03-18 20:28 | OPERATIVE REPORT ---
DATE OF SURGERY: 03/18/2016 SURGEON: Anabelle Alexadner MD PREOPERATIVE DIAGNOSIS: 1. Abscess, left forearm POSTOPERATIVE DIAGNOSIS: 1. Abscess, left forearm PROCEDURE PERFORMED: 1. Incision and drainage abscess, left forearm SURGICAL TECHNIQUE: The patient was placed in supine position on the operating table and after general anesthesia his left arm was prepped and draped in usual fashion. A longitudinal incision was made along the midportion of the left forearm over the ulnar volar side, approximately 4 cm long. Subcutaneous tissues were parted sharply. Hemostasis obtained with electrocautery. Abscess was immediately encountered and a large amount of greenish gamboa material was expressed from the wound. Cultures had been taken in the emergency department. The wound was explored for another 2 cm, both proximally and distally, and care was taken to be sure that the entire anterior surface of the abscess was exposed. A pulse lavage system was used to irrigate out the abscess and clean the interior surface. No other areas of abscess formation were identified. Other areas of induration were carefully examined with no evidence of abscess formation. The wound was then packed with 1-inch iodoform gauze, and a sterile dressing was applied. The patient tolerated the procedure, was taken to recovery room in stable condition.
--- NOTE | 2016-03-18 23:41 | NUR ---
SHIFT SUMMARY: PT MDEICATED WITH DILAUDID PO x 1 AND TORADOL AND APPEARS TO BE RESTING WELL. HE HAD AN EPISODE OF LOW BP WITH SBP IN THE 80s, DR NOTIFIED AND BOLUS ORDERED AND GIVEN BRINGING IT UP ABOVE 100. LEFT ARM ELEVATED WITH PILLOWS AND ICE APPLIED.
[2016-03-19] VITALS (8 sets, daily range): BP systolic 75–106; BP diastolic 44–68
--- NOTE | 2016-03-19 06:27 | NUR ---
A&OX4. VSS. SLEEPING BETWEEN CARE. LEFT ARM CORNELIA WRAPPED AND ELEVATED ON PILLOWS. INTERMITTENT ICE APPLICATION. CMS INTACT. NOTHING NEW OVERNIGHT. BED IN LOWEST POSITION. CALL LIGHT IN REACH. WCTM.
--- NOTE | 2016-03-19 07:52 | Progress Note ---
Subjective General Note Date: March 19, 2016 Admission Date: March 18, 2016 Hospital Day: 2 PCP: None Status: Inpatient Advanced Directive: FULL CODE Room: 207 Brief History: The patient is a 50-year-old white male with a significant past medical history of illicit drug use-heroin, methamphetamine who presented to [facility] emergency department secondary to complaints of painful swollen left forearm approximately 3 days duration. [facility] ER evaluation was consistent with abscess/cellulitis left forearm secondary to injection of drug use. Secondary to the above, the patient was admitted by Anabelle Alexander M.D. (orthopedics) with medical comanagement by the hospital service, Sharif Burton M.D. for further evaluation and treatment. For other history present illness, past medical history, family history, social history, review of systems, and admission physical examination please see the patient's history and physical examination and ER visit note in the patient's medical record. Subjective: The patient states he is doing well today. No signs of narcotic withdrawal. No significant pain. States doing well. Patient requests: None Medications and Allergies Medications Current Medications Sig/Dougie Start time Last Medication Dose Route Stop Time Status Admin Clarify Med Order See Dose 1130 03/19 1130 AC Insts (1) IV 03/19 1230 Ascorbic Acid 500 MG BIDWC 03/19 0900 AC PO Cholecalciferol 1,000 UNIT DAILY 03/19 0900 AC PO Ferrous Sulfate 325 MG BIDWC 03/19 0900 AC PO Zinc Sulfate 220 MG DAILY 03/19 0900 AC PO Piperacillin/ 2.25 GM BID 03/18 2100 CAN Tazobactam/Dextrose IV Vancomycin HCl/ 200 ML Q12HR 03/18 2100 CAN Dextrose IV Methadone HCl 20 MG Q8HR 03/18 1999 AC 03/19 PO 0540 Vancomycin HCl/ 200 ML 1200,2000,0400 03/18 2000 AC 03/19 Dextrose IV 0337 Nicotine 21 MG DAILY 03/18 1943 AC 03/18 TOP 2215 Ketorolac 30 MG Q6HR 03/18 1800 AC 03/19 Tromethamine IV 0540 Acetaminophen 650 MG Q4H PRN 03/18 1700 AC PO Dextrose/Sodium 1,000 ML ASDIRECTED 03/18 1700 AC 03/19 Chloride IV 0337 Docusate Sodium 100 MG BID PRN 03/18 1700 AC PO Hydromorphone HCl 2 MG Q4H PRN 03/18 1700 AC 03/18 PO 1740 Oxycodone/ See Dose Q4H PRN 03/18 1700 AC Acetaminophen Insts (2) PO Piperacillin/ 50 ML Q8HR 03/18 1515 AC 03/19 Tazobactam/Dextrose IV 0539 Ondansetron HCl 4 MG Q6H PRN 03/18 1500 AC IV Dose Instructions: (1)Clarify Med Order: VANCOMYCIN TROUGH (2)Oxycodone/Acetaminophen: 1-2 TABLETS Allergies Coded Allergies: No Known Drug Allergy (03/18/16) Physical Exam Vital Signs / I&Os Vital Signs Date Time Temp Pulse Resp B/P Pulse O2 O2 Flow FiO2 Ox Delivery Rate 03/19 0700 98.1 77 18 86/53 96 Room Air 03/19 0242 98.2 61 16 106/58 99 Room Air 03/18 2301 98.1 74 17 115/64 98 Room Air 03/18 2009 86/48 03/18 1937 71 20 84/51 99 Room Air 03/18 1832 68 14 101/61 96 Room Air 03/18 1803 97.5 79 20 98/61 96 Room Air 03/18 1750 Room Air 03/18 1745 76 20 120/67 95 Room Air 03/18 1725 72 16 94/63 96 Room Air 03/18 1709 97.5 78 14 98/64 96 Room Air 03/18 1659 98.4 82 13 104/56 98 03/18 1649 86 21 100 03/18 1644 98.1 82 17 98/54 99 03/18 1456 98.1 82 24 110/66 98 Room Air I&O 03/19 0000 03/18 1600 03/18 0800 Intake Total 4499 500 Output Total 950 Balance 3549 500 General Appearance Alert, Oriented X3, Cooperative, No acute distress Lungs Clear to auscultation, Normal air movement Cardiovascular Regular rate and rhythm, Normal S1 and S2 Abdomen Normal bowel sounds, Soft, No tenderness Extremities No cyanosis, No clubbing, left arm dressing in place. Wound not examined. See orthopedic notes. Neurological Grossly normal Psych/Mental Status Mental status normal, Mood normal LAB Results Laboratory Tests 03/19 03/19 03/18 0610 0500 1040 Chemistry Plasma Sodium (136 - 145 mmol/L) 135 133 Plasma Potassium (3.5 - 5.1 mmol/L) 4.2 3.9 Plasma Chloride (98 - 107 mmol/L) 100 95 CO2 (Enzymatic) (21 - 32 mmol/L) 26 28 BUN (7 - 18 mg/dL) 17 16 Creatinine (0.6 - 1.3 mg/dL) 1.0 0.9 Est GFR ( Amer) (mL/min) >60 >60 Est GFR (Non-Af Amer) (mL/min) >60 >60 Glucose (70 - 110 mg/dL) 111 106 Plasma Calcium (8.5 - 10.1 mg/dL) 7.8 9.4 Total Bilirubin (0.0 - 1.0 mg/dL) 1.0 AST (15 - 37 U/L) 33 ALT (12 - 78 U/L) 49 Alkaline Phosphatase (46 - 116 U/L) 128 Creatine Kinase (24 - 260 U/L) 112 Total Protein (6.4 - 8.2 g/dL) 8.7 Albumin (3.3 - 5.0 g/dL) 3.2 Hematology WBC (4.5 - 11.5 K/uL) 18.0 23.1 RBC (4.50 - 5.90 M/uL) 3.70 4.61 Hgb (13.5 - 17.5 gm/dL) 10.2 12.5 Hct (41.0 - 53.0 %) 31.4 38.7 MCV (80 - 100 fL) 85 84 MCH (26 - 34 pg) 28 27 RDW (11.6 - 14.8 %) 15.9 15.9 Neut % (Auto) (50 - 75 %) 71.9 69 Lymph % (Auto) (25 - 40 %) 15.8 17 [place] % (Auto) (3 - 14 %) 9.6 9 Eos % (Auto) (0 - 4 %) 2.2 0 Baso % (Auto) (0 - 2 %) 0.5 1 Band Neutrophils % (0 - 8 %) 4 Metamyelocytes % (0 - 1 %) 0 Myelocytes (0 - 1 %) 0 Other Cell Type 0 Plt Count, EDTA (150 - 400 K/uL) 416 468 Poikilocytosis (manual 1+ Anisocytosis (manual) 1+ PUBS MCHC (31 - 37 g/dL) 32 32 ESR Westergren (0 - 15 mm/hr) Pending Cancelled 03/18 03/18 1015 0907 Chemistry Creatine Kinase Cancelled Toxicology Urine Opiates Screen (NEGATIVE) POSITIVE Urine Methadone Screen (NEGATIVE) NEGATIVE Ur Barbiturates Screen (NEGATIVE) NEGATIVE U Amphetamin/Meth Scrn (NEGATIVE) POSITIVE MDMA (Ecstasy) Screen (NEGATIVE) POSITIVE U Benzodiazepines Scrn (NEGATIVE) NEGATIVE Urine Cocaine Screen (NEGATIVE) NEGATIVE U Cannabinoids Screen (NEGATIVE) NEGATIVE Urines Urine Color YELLOW Urine Appearance CLEAR Urine pH (5.0 - 8.0) 5.5 Ur Specific [place] (1.010 - 1.030) >= 1.030 Urine Protein (NEGATIVE) 1+ Urine Ketones (NEGATIVE) NEGATIVE Urine Blood (NEGATIVE) TRACE-LYSED Urine Nitrite (NEGATIVE) NEGATIVE Urine Bilirubin (NEGATIVE) NEGATIVE Urine Urobilinogen (0.2 - 1.0 EU/dL) 0.2 Ur Leukocyte Esterase (NEGATIVE) NEGATIVE Urine RBC (0 - 1 rbc/hpf) NONE SEEN Urine WBC (0 - 1 wbc/hpf) 1-3 Ur Epithelial Cells (0 - 5 EPI/hpf) NONE SEEN Urine Bacteria (NONE SEEN) FEW (1+) Urine Glucose (NEGATIVE) NEGATIVE Urine Comment CULT NOT INDICATED Microbiology Date/Time Procedure - Status Source Growth 03/18 1230 Deep Wound Culture - RES ARM 03/18 1230 Deep Wound Culture - RES ARM 03/18 1230 Gram Stain - RES ARM 03/18 1145 Blood Culture - RECD BLOOD 03/18 1040 Blood Culture - RECD BLOOD Assessment and Plan Problem List 1. Cellulitis and abscess of upper arm and forearm Status Acute Onset Date Unknown Plan -Status post I&D -Follow up with orthopedic/wound care clinic -Await culture and sensitivity from abscess -Continue with vancomycin/Zosyn -Consult wound care clinic today 2. Illicit drug use Status Chronic Onset Date Unknown Plan -Patient with history of illicit drug use methamphetamine/heroin -Discharge planning to see patient today to aid in enrollment in drug treatment program -Monitor 3. Nicotine dependence Status Chronic Onset Date Unknown Plan -Patient with history of nicotine dependence-smoking -NicoDerm patch when necessary -Smoking cessation education -Encourage smoking abstinence post discharge 4. Anemia Status Acute Onset Date Unknown Plan -Patient with mild anemia -H&H: 10.2/31.4, MCV 85 -Check iron studies, B12, folate -Monitor -No signs of GI bleeding 5. Opiate dependence Status Chronic Onset Date Unknown Plan -Patient with history of opiate dependence. -Slightly oversedated today. -Current replacement schedule is methadone 20 mg by mouth every 8 hours. -We'll decrease to methadone 15 mg by mouth every 8 hours. -Monitor -Enrollment in treatment program post hospitalization 6. Hyponatremia Status Acute Onset Date Unknown Plan -Patient admitted with hyponatremia -Resolved -Serum sodium: 135 today -Monitor -No fluid restriction at this time Current status: Fair, improved Anticipated discharge date: Anticipated discharge in 2 days Anticipated discharge placement: Home Patient care time: Time spent in chart review, patient interview, physical exam, CPOE, and care documentation: 25 minutes Visit to patient today: 1 Complexity of care: Moderate E&M Codes Rounding: Inpt-Moderate/[id number]
--- NOTE | 2016-03-19 08:59 | NUR ---
RECEIVED PT ASLEEP BUT EASILY AROUSED. PT'S BREAKFAST IS READY BUT PT PREFERS TO REST AT THIS TIME.
--- NOTE | 2016-03-19 09:00 | NUR ---
RECEIVED PT UP IN THE CHAIR, AWAKE, ALERT, ORIENTED, COHERENT, COOPERATIVE. V/S TAKEN AND RECORDED. ASSESSMENT DONE. PT DENIES ANY PAIN AT THIS TIME. LEFT ARM CORNELIA WRAP IS CLEAN, DRY AND INTACT. PT TOERLATED HIS MEALS WELL. DUE MEDS GIVEN. NEEDS ATTENDED.
--- NOTE | 2016-03-19 11:18 | ED DISCHARGE INSTRUCTIONS ---
Patient: TAYLOR PINTO III General Instructions [facility] VisitID: [id number] [address] [place] [place] [address] 50y, M Registration Date/Time: 03/18/2016 Substance abuse problems: abuse of opiates, methamphetamine and hallucinogens. Large abscess and cellulitis of the left forearm. IVDA heroin. (Electronically signed by Jimy Weaver MD 03/19/2016 11:18)
--- NOTE | 2016-03-19 11:18 | ED MAR SUMMARY ---
..... Medication Administration Record [facility] [address] [place] [address] Patient: TAYLOR PINTO Visit ID: [id number] 50y, M Weight: 79.3 kg Height/Length: 71 in BMI: 24.4 ALLERGIES: None Start 10:49 03/18/2016 Adam Marroquin R.N. Medication Administered: IV NS (SALINE), Dose: IV Fluids over 4 hour(s), Rate: 250 mL/hr, Dispensed: 1000 mL bag, Site: #1 right forearm. Medication Ordered: IV NS : initial bolus none -, then 250 mL/hr for 4h (NOW); Routine. Given 11:00 03/18/2016 Adam Marroquin R.N. Medication Administered: TORADOL [IVP], Dose: 30 mg IVP over 2 minute(s), Site: #1 right forearm. Medication Ordered: Toradol IV 30 mg (NOW). Start 13:01 03/18/2016 Adam Marroquin R.N. Medication Administered: VANCOMYCIN [IVPB], Dose: 2 gm IVPB over 3 hour(s), Rate: 150 mL/hr, Dispensed: 530 mL bag, Site: #1 right forearm. Medication Ordered: Vancomycin IV 25 mg/kg (NOW).
--- NOTE | 2016-03-19 11:18 | ED MED RECONCILIATION SUMMARY ---
Patient: TAYLOR PINTO III Medication Reconciliation Report [facility] VisitID: [id number] [address] [place] [address] 50y, M Registration Date/Time: 03/18/2016 Weight: 79.3 kg Height/Length: 71 in. BMI: 24.4 ALLERGIES: None The patient's Home Medications are listed below: NONE. The source(s) of the original Home Medication information: patient The following Medications were given to the patient in the Emergency Department: IV NS IV Fluids bolus 0, then 250 mL/hr, administered: 03/18/2016 10:49:00 AM Toradol [IVP] IVP 30 mg, administered: 03/18/2016 11:00:00 AM Vancomycin [IVPB] IVPB bolus 0, then 2 gm 150 mL/hr, administered: 03/18/2016 1:01:00 PM The following Medications were prescribed to the patient: None.
--- NOTE | 2016-03-19 11:18 | ED MAR SUMMARY ---
..... Medication Administration Record [facility] [address] [place] [address] Patient: TAYLOR PINTO Visit ID: [id number] 50y, M Weight: 79.3 kg Height/Length: 71 in BMI: 24.4 ALLERGIES: None Start 10:49 03/18/2016 Adam Marroquin R.N. Medication Administered: IV NS (SALINE), Dose: IV Fluids over 4 hour(s), Rate: 250 mL/hr, Dispensed: 1000 mL bag, Site: #1 right forearm. Medication Ordered: IV NS : initial bolus none -, then 250 mL/hr for 4h (NOW); Routine. Given 11:00 03/18/2016 Adam Marroquin R.N. Medication Administered: TORADOL [IVP], Dose: 30 mg IVP over 2 minute(s), Site: #1 right forearm. Medication Ordered: Toradol IV 30 mg (NOW). Start 13:01 03/18/2016 Adam Marroquin R.N. Medication Administered: VANCOMYCIN [IVPB], Dose: 2 gm IVPB over 3 hour(s), Rate: 150 mL/hr, Dispensed: 530 mL bag, Site: #1 right forearm. Medication Ordered: Vancomycin IV 25 mg/kg (NOW).
--- NOTE | 2016-03-19 11:18 | ED DISCHARGE INSTRUCTIONS ---
Patient: TAYLOR PINTO III General Instructions [facility] VisitID: [id number] [address] [place] [place] [address] 50y, M Registration Date/Time: 03/18/2016 Substance abuse problems: abuse of opiates, methamphetamine and hallucinogens. Large abscess and cellulitis of the left forearm. IVDA heroin. (Electronically signed by Jimy Weaver MD 03/19/2016 11:18)
--- NOTE | 2016-03-19 11:18 | ED MED RECONCILIATION SUMMARY ---
Patient: TAYLOR PINTO III Medication Reconciliation Report [facility] VisitID: [id number] [address] [place] [address] 50y, M Registration Date/Time: 03/18/2016 Weight: 79.3 kg Height/Length: 71 in. BMI: 24.4 ALLERGIES: None The patient's Home Medications are listed below: NONE. The source(s) of the original Home Medication information: patient The following Medications were given to the patient in the Emergency Department: IV NS IV Fluids bolus 0, then 250 mL/hr, administered: 03/18/2016 10:49:00 AM Toradol [IVP] IVP 30 mg, administered: 03/18/2016 11:00:00 AM Vancomycin [IVPB] IVPB bolus 0, then 2 gm 150 mL/hr, administered: 03/18/2016 1:01:00 PM The following Medications were prescribed to the patient: None.
--- NOTE | 2016-03-19 11:38 | PROGRESS NOTE ---
DATE OF SERVICE: 03/19/2016 ATTENDING PHYSICIAN/PROVIDER: Anabelle Alexander MD HISTORY OF PRESENT ILLNESS: The patient is postoperative day 1 from I&D of a left forearm abscess. He is doing well. He is afebrile. His white count is 18, 000. He is having almost no pain at this time. On physical examination, his cellulitis is markedly improved. His dressing is still intact. He has normal sensation and pulses. IMPRESSION: 1. He is status post incision and drainage abscess, left forearm PLAN: The patient is going to have a wound debridement and dressing change tomorrow, possible wound VAC insertion. We discussed treatment options. He understands and agrees. He understands the complications of possible further infection, nerve and vessel injury, heart attack, stroke, pneumonia, DVT, and he agrees.
--- NOTE | 2016-03-19 14:45 | NUR ---
BR IS 77/47, PT IS ASLEEP, EASILY AROUSED, DENIES WEAKNESS, CHEST PAIN AT THIS TIME. DR RODRIGUEZ NOTIFIED, WITH ORDERS MADE AND CARRIED OUT. NS 500CC BOLUS GIVEN.
--- NOTE | 2016-03-19 15:29 | NUR ---
Phamracy To Dose Vancomcyin CC-Abscess/Cellulitis Labs- Scr 1.0 CrCl 88 ml/min Afebrile Cx-GPC Other Abx- ZOsyn 3.375 GM IV q8h Vancomycin Troughs: 19.1 mcg/ml @1154 on 03/19/16 A/P: Vanco trough of 19.1 mcg/ml is in goal range. Will cont with vancomycin 1000mg IV q8h. Repeat VT for 1130 on 03/20/16. F/U with cx. Pharmacy will cont to follow.
--- NOTE | 2016-03-19 18:11 | NUR ---
PT IS A&OX3, LS CTA, HR IS REG AND BT ACTIVE. LEFT FOREARM IN CORNELIA WRAP. C/O PAIN 05/02. PT IS VERY SLEEPY. NO C/O NAUSEA. PT HAD LOW BP OF 77/61. MD NOTIFIED. 2ND FLUID BOLUS ORDERED. BP IS NOW 98/68. RESTING W/ CALL LIGHT IN REACH.
--- NOTE | 2016-03-19 22:43 | NUR ---
TOOK OVER THIS PATIENT'S CARE. HE IS NOW AWAKE WATCHING TELLY AND HAD A SNACK. HE IS AWARE OF HIS PROCEDURE FOR TOMORROW AND THE NEED TO BE NPO POST MN. HE HAS CONFIRMED THAT HE HAS BEEN GETTING UP TO PASS URINE IN THE TOILET. RECENT BP HAS IMPROVED.
[2016-03-20] VITALS (13 sets, daily range): BP systolic 79–109; BP diastolic 45–75
--- NOTE | 2016-03-20 05:40 | NUR ---
Pt slept between care. Medicated for 5/10 pain with scheduled toradol. VSS on room air, independent to bathroom. Left hand has some edema, but fingers are warm, pink and good cap refill. Pt has been NPO since midnight in anticipation of surgery today. No other concerns at this time.
--- NOTE | 2016-03-20 08:00 | NUR ---
BP 79/45 AND WHEN RECHECKED WAS 87/52. PATIENT ALERT AND ORIENTED WITH NO COMPLAINTS OF SOB, CHEST PAIN, DIZZINESS. PATIENT STATED, "MY BLOOD PRESSURE IS ALWAYS LOW." MD NOTIFIED AND ORDER FOR 500CC NS BOLUS GIVEN. ORDERS CARRIED OUT AND WILL CONTINUE TO MOINTOR.
--- NOTE | 2016-03-20 10:25 | NUR ---
NUTRITION ASSESSMENT: Pt admitted with dx/o cellulitis. PMH includes: injection of narcotics, back surgery. Pt is currently NPO for I&D today. Prior to NPO pt with good appetite per nsg and documentation 40-100%. Diet Rx: General NKFA Wts: 69.6 kg Ht: 72" IBW: 70-77 kg BMI: 21 Est Kcals: ~0274-0772 kcal per day Est Pro: ~75-90 g per day Est Fluids: ~2220 mls per day Meds incl: vitamin C, vitamin D, Ferrous sulfate, methadone, nicotine, zinc sulafate, vanco, IVfs, see emar for comlpete list/details. Labs Incl: glucose 107, BUN 9, Creat 1.0, Na+ 141, K+ 4.4, Ca+ 8.1, HCT 31.0, HGB 9.9, MCV 85, MCH 27 (03/18) albumin 3.2 Skin: Kendall Score 20 A: Pts appetite appears intact. Anticipate pt to return to general diet after procedure. Rev'd meds and labs. Vitamins in place per ortho surgeon. BMI; wnl. RD to follow up prn/protocol. P: 1. General diet when medically cleared for PO intake.
--- NOTE | 2016-03-20 13:47 | NUR ---
PATIENT HAS BEEN STABLE SINCE BOLUS WITH SBP OVER 90. PATIENT AWAITING SURGICAL PROCEDURE THIS AFTERNOON. SD ROBLESER IN TO SEE PATIENT AND ABLE TO HIM SET UP WITH [employer]. WILL CONTINUE TO MONIOR.
--- NOTE | 2016-03-20 14:34 | NUR ---
PATIENT STATED, "I WANT TO LEAVE THEY WONT FUCKING LET ME EAT." THIS RN EXPLAINED TO PATIENT ABOUT THE REASON BEHIND HIS NPO STATUS PRIOR TO SURGERY AND THAT THEY WILL GET TO HIS SURGERY TODAY. PATIENT STATED, "IF THEY DON'T TAKE ME BY 4PM I AM GOING TO LEAVE." THIS RN EXPLAINED TO PATIENT THAT HE CAN LEAVE AMA BUT WE STRONLY ADVISE AGAINST DOING SO, ETC. MD NOTIFED.
--- NOTE | 2016-03-20 14:53 | NUR ---
RN states that pt is being brought to OR today for another debridment, with possible wound vac placement. Pt is self pay, Seng Kellyer to see patient regarding health care insurance, needed for follow up care for wound, will continue to monitor.
--- NOTE | 2016-03-20 15:09 | NUR ---
PATIENT HAS BP OF 86/52 WITH A HR OF 66. MD NOTIFIED AND ORDERS GIVEN FOR 500CC BOLUS NS. ORDERS CARRIED OUT AND REPORT GIVEN TO EVENING SHIFT RN.
--- NOTE | 2016-03-20 15:14 | NUR ---
Pharmacy To Dose Vancomycin CC-Cellulitis Labs- Scr 1.0 CrCl 88 ml/min Afebrile Wound cx GPC WBC 14.6 Other Abx- Zosyn 3.375 IV q8h Vanco Troughs- 27.0 mcg/ml @1130 on 03/20/16 19.1 mcg/ml @1130 on 03/19/16 A/P: Vanco trough of 27 mcg/ml is above goal range. Will change dose to vanco 1250 mg IV q12h to begin at 2000 as level at this time will be in goal range for redosing. Est SS trough of ~13.9 mcg/ml. VT ordered for 0730 on 03/22/16. Pharmacy will cont to follow.
--- NOTE | 2016-03-20 16:31 | NUR ---
1550-- PT INTERVIEWED IN [facility], NEG MRSA SCREEN, ANTIBIOTICS HAVE BEEN GIVEN ON REG SCHEDULE ON [facility]. PT CONFIRMS PROCEDURE, IV IN R WRIST
--- NOTE | 2016-03-20 17:04 | NUR ---
LE; REC'D FROM OR; AWAKE AND ALERT; SITTING UP REPORTS, "BURNING," IN OP ARM; MEDS GIVEN. INSTRUCTED TO DB. CO-OP
--- NOTE | 2016-03-20 17:33 | Progress Note ---
Subjective General The patient is a 50-year-old white male with a significant past medical history of illicit drug use-heroin, methamphetamine who presented to [facility] emergency department secondary to complaints of painful swollen left forearm approximately 3 days duration. [facility] ER evaluation was consistent with abscess/cellulitis left forearm secondary to injection of drug use. Patient had developed abscesses in his left fore arm, and is scheduled for surgery today. Will reassess after surgery. Physical Exam Vital Signs / I&Os Vital Signs Date Time Temp Pulse Resp B/P Pulse O2 O2 Flow FiO2 Ox Delivery Rate 03/20 1731 98.2 58 12 113/70 99 03/20 1720 63 10 103/66 100 03/20 1710 64 12 98/52 100 03/20 1700 59 10 109/70 97 03/20 1653 66 12 100/65 100 03/20 1648 98.2 62 12 100/77 97 03/20 1418 97.9 66 18 86/52 93 Room Air 03/20 1039 97.7 65 17 93/55 90 Room Air 03/20 0908 91/56 03/20 0756 87/52 03/20 0756 65 14 94 Room Air 03/20 0653 97.9 12 79/45 94 Room Air 03/20 0311 98.1 64 14 94/50 92 Room Air 03/19 2347 Room Air 03/19 2222 Room Air 0.0 03/19 2157 97.5 57 16 104/60 94 Room Air 03/19 1802 97.5 64 16 95/62 94 Room Air I&O 03/19 0800 03/19 1600 03/20 0000 Intake Total 1335 2190 931 Output Total 900 Balance 1335 1290 931 General Appearance Pt unwilling to undergo physical exam at this time Assessment and Plan Problem List 1. ABSCESS AND CELLULITIS LEFT FOREARM Plan -Await culture and sensitivity from abscess -Continue with vancomycin/Zosyn -ortho revision today 2. Illicit drug use Status Chronic Onset Date Unknown Plan -Patient with history of illicit drug use methamphetamine/heroin -Discharge planning to see patient today to aid in enrollment in drug treatment program -Monitor 3. Anemia Status Acute Onset Date Unknown Plan -Patient with mild anemia -H&H: 10.2/31.4, MCV 85 - secondary to iron defiency anemia, will provide iron supplementation 4. Hyponatremia Status Acute Onset Date Unknown Plan - resolved
--- NOTE | 2016-03-20 17:33 | Progress Note ---
Subjective General The patient is a 50-year-old white male with a significant past medical history of illicit drug use-heroin, methamphetamine who presented to [facility] emergency department secondary to complaints of painful swollen left forearm approximately 3 days duration. [facility] ER evaluation was consistent with abscess/cellulitis left forearm secondary to injection of drug use. Patient had developed abscesses in his left fore arm, and is scheduled for surgery today. Will reassess after surgery. Physical Exam Vital Signs / I&Os Vital Signs Date Time Temp Pulse Resp B/P Pulse O2 O2 Flow FiO2 Ox Delivery Rate 03/20 1731 98.2 58 12 113/70 99 03/20 1720 63 10 103/66 100 03/20 1710 64 12 98/52 100 03/20 1700 59 10 109/70 97 03/20 1653 66 12 100/65 100 03/20 1648 98.2 62 12 100/77 97 03/20 1418 97.9 66 18 86/52 93 Room Air 03/20 1039 97.7 65 17 93/55 90 Room Air 03/20 0908 91/56 03/20 0756 87/52 03/20 0756 65 14 94 Room Air 03/20 0653 97.9 12 79/45 94 Room Air 03/20 0311 98.1 64 14 94/50 92 Room Air 03/19 2347 Room Air 03/19 2222 Room Air 0.0 03/19 2157 97.5 57 16 104/60 94 Room Air 03/19 1802 97.5 64 16 95/62 94 Room Air I&O 03/19 0800 03/19 1600 03/20 0000 Intake Total 1335 2190 931 Output Total 900 Balance 1335 1290 931 General Appearance Pt unwilling to undergo physical exam at this time Assessment and Plan Problem List 1. ABSCESS AND CELLULITIS LEFT FOREARM Plan -Await culture and sensitivity from abscess -Continue with vancomycin/Zosyn -ortho revision today 2. Illicit drug use Status Chronic Onset Date Unknown Plan -Patient with history of illicit drug use methamphetamine/heroin -Discharge planning to see patient today to aid in enrollment in drug treatment program -Monitor 3. Anemia Status Acute Onset Date Unknown Plan -Patient with mild anemia -H&H: 10.2/31.4, MCV 85 - secondary to iron defiency anemia, will provide iron supplementation 4. Hyponatremia Status Acute Onset Date Unknown Plan - resolved
--- NOTE | 2016-03-20 19:10 | OPERATIVE REPORT ---
DATE OF SURGERY: 03/20/2016 SURGEON: Anabelle Alexander MD PREOPERATIVE DIAGNOSIS: 1. Abscess, left forearm POSTOPERATIVE DIAGNOSIS: 1. Abscess, left forearm PROCEDURES PERFORMED: 1. Incision and drainage left forearm wound abscess 2. Instillation of wound VAC DESCRIPTION OF PROCEDURE: The patient was placed in supine position on the operating table and after general anesthesia his left arm was prepped and draped in usual fashion. Packing was removed from the wound and the wound was cleansed with a pulse lavage system. At the end of wound cleansing a sponge for the wound VAC was cut to the appropriate size and put inside the wound and held in place with large skin alisha. The plastic covering of the wound VAC system was inserted and the suction portal was added. The system was initiated and appeared to have good suction without any leaks. Sterile dressing was applied. The patient was taken to recovery room in stable condition.
--- NOTE | 2016-03-20 19:25 | NUR ---
pt returend from PACU around 1814. He threatened to leave AMA when he found out that he will be staying until at least Thursday. Explained to him the risk of leaving and pt agreed to stay for now. Notified and regarding his AMA threat. C/O "20/10 pain" at the surgical site and states percocet not effective. Obtained 2x dose of dialudid 1mg IV, and gave to pt. barron well. Barron gen diet well as well. CMS intact on L arm. Will cont to monitor
[2016-03-21] VITALS (7 sets, daily range): BP systolic 81–116; BP diastolic 47–78
--- NOTE | 2016-03-21 06:34 | NUR ---
Pt did not sleep much during the night. VSS and no s/s of pain. O2 sats on RA during waking hours was 90%. 2L nc placed on pt during night and O2 sats were 94%. Pt still has wet cough, but not able to spit anything out. Was cooperative and stayed in bed, but pulled off gown and nc at times.
--- NOTE | 2016-03-21 06:40 | NUR ---
Pt slept well during the night. VSS on room air, though BP was low < 100/60 throughout the shift. Medicated for pain with prn and scheduled meds. Last dose of IV dilaudid given. Pt was pleasant, calm and cooperative, no threats of leaving AMA. Wound vac on, alpesh dressing C/D/I.
--- NOTE | 2016-03-21 08:28 | NUR ---
PT OOB FOR BREAKFAST. REFUSED TO TAKE HIS AM VITAMINS AND MINERALS. EXPLAINED THE REASON AND VALUE OF TAKING HIS VITAMINS AND HE STATED,"I DON'T LIKE THE WAY MY GUT FEELS AFTER TAKING THEM, SO NO, I DON'T WANT TO TAKE THEM." PAIN CONTROLLED AT THIS TIME WITH ROUTINE METHADONE AND TORADOL. LEFT HAND SMALL AMOUNT OF EDEMA WITH CORNELIA WRAP IN PLACE ON THE LFA. GOOD CMS (+) TO HAND AND EXTREMITY. WCTM.
--- NOTE | 2016-03-21 10:39 | PROGRESS NOTE ---
DATE OF SERVICE: 03/21/2016 ATTENDING PHYSICIAN/PROVIDER: Anabelle Alexander MD HISTORY OF PRESENT ILLNESS: The patient is postoperative day 1 wound VAC insertion in his left forearm and he is doing well. He is afebrile. His white count this morning is 11.6. His extremity is cool. He has normal sensation and pulses. There is no obvious cellulitis. Wound VAC is working correctly. IMPRESSION: 1. Status post wound VAC insertion, left arm. PLAN: The patient is scheduled tomorrow morning for a wound VAC removal and wound closure. We have discussed possible surgical complications including further infection, nerve and vessel injury, deep vein thrombosis, pulmonary embolus, heart attack, stroke, pneumonia and possible . He understands and agrees.
--- NOTE | 2016-03-21 11:07 | NUR ---
In to speak with patient about tentative plan of care upon discharge, pt sleeping at this time, and per RN will let him rest. Per patients RN plan is for patient to go back to surgery tomorrow (thursday) and remove wound vac, then to d/c patient on Thursday. Spoke with senior media planner and we will work together to speak with patient and come up with a plan for after discharge for wound care, as of now patient will be going home with brother, and address listed on facesheet is for Mary. Will continue to work on this.
--- NOTE | 2016-03-21 12:48 | NUR ---
REFUSES @ THIS TIME TO ADL'S. HAS A DEPRESSED AFFECT AND STATED, "JUST LEAVE ME ALONE." PT STILL REMAINS PLEASANTLY COOPERATIVE. DR CHAVEZ ASSESSED AND CONSENT SIGNED FOR PROCEDURE TO BE DONE TOMORROW @ 0900.
--- NOTE | 2016-03-21 15:04 | NUR ---
Call placed to Dr. Alexander regarding plan of care for patient. Doctor stated that patient will be going to OR tomorrow and have wound vac removed, discussed at length options available for wound/dressing after removal, and for discharge. I suggested either Alginate and cover dressing, or moist saline gauze dressings, both dependent upon amount of drainage. I have not physically seen the wound since wound vac has been in place, Doctor did describe it for me, and I think either dressing would be a viable choice for after discharge, and then to follow up at the wound care center for outpatient treatment. After much discussion, Doctor decided to possibly suture incision close tomorrow, while placing a LAURA drain for exudate control. I called the [facility] to ensure that they would be able to see patient with this outcome, Spoke with FARHAT Santillan and she said yes. Reported to pts RN, pt will need LAURA drain maintenance teaching, and appt scheduled by [facility] for [facility] for obtaining primary MD. Referral form faxed to [facility], will continue to monitor.
--- NOTE | 2016-03-21 16:55 | Progress Note ---
Subjective General Pt has had no events overnight. Patient tolerated the wound vac without any sort of problems. The orthopedic surgeon plans to remove the wound vac on thursday, with a possible thursday discharge. Patient is otherwise stable. Constitutional Denies: Fever, Chills, Sweats, Weakness, Malaise, Other. Eyes Denies: Pain, Vision Change, Conjunctival Inflammation, Eyelid Inflammation, Redness, Other. Respiratory Denies: Cough, Dry, SOB w/exertion, Wheezing, Hemoptysis, Pleuritic Pain, Sputum , Other. Cardiovascular Denies: Chest Pain, Palpitations, Orthopnea, PND, Edema, Light-headedness, Other. Gastrointestinal Denies: Nausea, Vomiting, Abdominal Pain, Diarrhea, Constipation, Melena, Hematochezia, Other. Genitourinary Denies: Dysuria, Frequency, Incontinence, Hematuria, Retention, Other. Musculoskeletal Arm Pain, Back Pain. Denies: Neck Pain, Shoulder Pain, Hand Pain, Leg Pain, Foot Pain, Other. Physical Exam Vital Signs / I&Os Vital Signs Date Time Temp Pulse Resp B/P Pulse O2 O2 Flow FiO2 Ox Delivery Rate 03/21 1441 97.9 65 20 84/52 94 Room Air 0.0 03/21 1047 97.9 58 20 81/47 94 Room Air 0.0 03/21 0835 Room Air 03/21 0656 98.2 61 18 87/51 94 Room Air 0.0 03/21 0251 97.9 52 16 89/57 93 Room Air 03/21 0051 Room Air 03/21 0041 97.9 56 14 95/57 98 Room Air 03/20 2025 60 14 103/67 98 Room Air 03/20 1955 57 14 93/61 97 Room Air 03/20 1925 67 14 94/54 97 Room Air 03/20 1900 Room Air 03/20 1855 65 12 90/56 92 Room Air 03/20 1845 59 12 106/70 98 Room Air 03/20 1835 65 12 90/54 91 Room Air 03/20 1823 97.9 55 12 109/75 98 Room Air 03/20 1742 98.1 59 12 123/67 96 03/20 1731 98.2 58 12 113/70 99 03/20 1720 63 10 103/66 100 03/20 1710 64 12 98/52 100 03/20 1700 59 10 109/70 97 03/20 1653 66 12 100/65 100 03/20 1648 98.2 62 12 100/77 97 I&O 03/20 0800 03/20 1600 03/21 0000 Intake Total 729 3415 1221 Output Total 1999 650 Balance 729 1415 571 General Appearance Alert, Oriented X3, No acute distress HEENT PERRLA, EOMI, Moist mucous membranes Lungs Clear to auscultation, Normal air movement Neck No JVD, No masses, No lymphadenopathy, 2+ carotid pulse wo bruit Cardiovascular Regular rate and rhythm, Normal S1 and S2, No murmurs, gallops, rubs Abdomen Soft, No guarding, No rebound, No masses Extremities No edema, Strength = upper ext's, Strength = lower ext's Skin No Breakdown, No Significant Lesions LAB Results Laboratory Tests 03/21 0450 Hematology WBC (4.5 - 11.5 K/uL) 11.6 RBC (4.50 - 5.90 M/uL) 3.44 Hgb (13.5 - 17.5 gm/dL) 9.5 Hct (41.0 - 53.0 %) 29.2 MCV (80 - 100 fL) 85 MCH (26 - 34 pg) 28 RDW (11.6 - 14.8 %) 16.8 Neut % (Auto) (50 - 75 %) 52.7 Lymph % (Auto) (25 - 40 %) 31.2 Bandera % (Auto) (3 - 14 %) 7.9 Eos % (Auto) (0 - 4 %) 7.7 Baso % (Auto) (0 - 2 %) 0.5 Plt Count, EDTA (150 - 400 K/uL) 448 PUBS MCHC (31 - 37 g/dL) 33 Assessment and Plan Problem List 1. Cellulitis and abscess of upper arm and forearm Status Acute Onset Date Unknown Plan - pt is s.p i&d with revision - currently the most recent abscess has been drained and patient has a wound vac placed - will go for wound vac removal tomorrow 2. Illicit drug use Status Chronic Onset Date Unknown 3. Anemia Status Acute Onset Date Unknown Plan - secondary to iron defiency - pt placed on medication for supplementation 4. Hyponatremia Status Acute Onset Date Unknown Plan - resolved
--- NOTE | 2016-03-21 17:34 | NUR ---
PT'S APPETITE HAS DECREASED DURING THE DAY AND HAS A FLAT AFFECT. HAS NOT NEEDED BREAKTHROUGH PAIN RX. ROUTINE TORADOL AND METHADONE EFFECTIVE FOR LE PAIN.
--- NOTE | 2016-03-22 00:30 | NUR ---
PT SLEEPING COMFORTABLY. DENIES PAIN AND HAS NOT REQUIRED PRN PAIN MEDS. REMINDED PT ABOUT NPO AFTER MIDNIGHT. PT COOPERATIVE. WILL CONT TO MONITOR
[2016-03-22 03:09] VITALS: BP 107/68
[2016-03-22 04:50] VITALS: BP 111/63
--- NOTE | 2016-03-22 04:53 | NUR ---
pt c/o burning stomach discomfort around 0245. No c/o nausea or pain. BT hyperactive and stomach firm. Gave warm blanket to apply and pt able to sleep. When he woke up around 0445, pt stated his abd discomfort was gone but, c/o hot flushes and diaphoresis. VSS at 111/63 and HR 59, temp 97.8F. Pt went back to sleep. Will cont to monitor.
--- NOTE | 2016-03-22 06:50 | NUR ---
pt c/o burning sensation on abdomen again around 0600. Denies nausea and states hot flush has resolved. Notified and obtained order for protonix. Still pending order and will delegate to next shift.
[2016-03-22 07:08] VITALS: BP 110/63
--- NOTE | 2016-03-22 08:46 | NUR ---
PATIENT ID AND PROCEDURE VERIFIED UPON ARIVAL TO THE PREOP AREA.
--- NOTE | 2016-03-22 09:21 | NUR ---
Vancomycin dosing per pharmacy trough level 29.7 above range Holding 0800 and further doses. Checking Scr and BUN this am. Will recheck vancomycin level in am before restarting further doses. Also continues on Zosyn q8h. Pharmacist will follow
--- NOTE | 2016-03-22 10:39 | NUR ---
rec'd from OR; SPONT RESP. LYING ON SIE. BEGINS TO ROUSE. CMS=GOOD. LAURA EMPTY
[2016-03-22 11:06] VITALS: BP 132/84
[2016-03-22 11:21] VITALS: BP 128/69
--- NOTE | 2016-03-22 11:34 | NUR ---
1130- pt states he wants to leave now. notified. I discussed with patient to please wait for discharge so that he can receive antibiotic prescriptions and referral to wound care and PCP follow up. He refuses. He insists to leave now. Pt dc'd IV site by standing up and walking, demanding clothes from closet. Pt allowed me to teach him how to empty his drain. He would not demonstrate that he could do it on his own. Pt left AMA at 1136. MD us notified.
--- NOTE | 2016-03-22 21:42 | OPERATIVE REPORT ---
DATE OF SURGERY: 03/22/2016 SURGEON: Anabelle Alexander MD PREOPERATIVE DIAGNOSIS: 1. Abscess, left forearm POSTOPERATIVE DIAGNOSIS: 1. Abscess, left forearm PROCEDURE PERFORMED: 1. Removal of wound VAC 2. Cleaning of wound 3. Closure over Romeo-Lucas drain ANESTHESIA: General. SURGICAL TECHNIQUE: The patient was placed in supine position on the operating table. After general anesthesia, his left arm was prepped and draped in the usual fashion. The wound VAC was removed and the wound looked very clean. It was further cleaned with pulse lavage irrigation. When that had been performed, there was no cellulitis, soft tissue swelling, or exudate present. A Romeo-Lucas drain was left in the depths of the wound and sewn in place distal to the wound. The wound itself was closed with interrupted skin sutures. At the end of the wound closure, the reservoir on the Romeo-Lucas drain was activated and there was no evidence of leakage. Sterile dressing was applied. The patient was taken to the recovery room in stable condition.
--- NOTE | 2016-03-23 01:53 | DISCHARGE SUMMARY ---
ADMIT DATE: 03/18/2016 DISCHARGE DATE: 03/22/2016 ADMITTING DIAGNOSES: 1. Cellulitis and abscess of the upper arm and forearm 2. Illicit drug use 3. Nicotine dependence 4. Anemia 5. Hyponatremia DISCHARGE DIAGNOSES: 1. Cellulitis and abscess of the upper arm and forearm 2. Illicit drug use 3. Nicotine dependence 4. Anemia 5. Hyponatremia HOSPITAL COURSE: The patient was admitted to the hospital and started on IV antibiotics. He was taken to surgery for incision and drainage on 03/18/2016, again on 03/20/2016, and again on 03/22/2016. A wound VAC was placed. The patient remained in the hospital while he was on the wound VAC. On 03/22/2016, his wound VAC was discontinued intraoperatively. DISCHARGE INSTRUCTIONS/MEDICATIONS: When the patient returned to the floor from recovery, he left AMA within 15 minutes of returning to the floor, despite encouragement that the physician would be down momentarily to write discharge orders, including medications with antibiotics. The nurse counseled the patient very adamantly that without the antibiotics, his infection would likely continue and/or get worse and that he could . He still left AMA.
== END 2016-03-22 11:38 | disposition left against medical advice (07) | DRG 364 ==
LOC: ED SRH 08:10 → TRANS SRH 13:26 → ACUTE2 SRH 14:48
PROVIDERS: Orthopaedic Surgery; ADMIT Emergency Medicine
PROC: 0H9EXZX Drainage of Left Lower Arm Skin, External Approach, Diagnostic (ICD-10-PCS; 2016-03-18)
PROC: 0JDH0ZZ Extraction of Left Lower Arm Subcutaneous Tissue and Fascia, Open Approach (ICD-10-PCS; principal; 2016-03-18 16:00)
PROC: 0J9H0ZZ Drainage of Left Lower Arm Subcutaneous Tissue and Fascia, Open Approach (ICD-10-PCS; principal; 2016-03-18 16:00)
PROC: 0JDH0ZZ Extraction of Left Lower Arm Subcutaneous Tissue and Fascia, Open Approach (ICD-10-PCS; 2016-03-20)
PROC: 0JDH0ZZ Extraction of Left Lower Arm Subcutaneous Tissue and Fascia, Open Approach (ICD-10-PCS; 2016-03-22)
PROC: 0JQH0ZZ Repair Left Lower Arm Subcutaneous Tissue and Fascia, Open Approach (ICD-10-PCS; 2016-03-22)
DX: L02.414 Cutaneous abscess of left upper limb (principal); L03.114 Cellulitis of left upper limb; S51.832A Puncture wound without foreign body of left forearm, initial encounter; W46.0XXA Contact with hypodermic needle, initial encounter; Y99.8 Other external cause status; F11.20 Opioid dependence, uncomplicated; E87.1 Hypo-osmolality and hyponatremia; D64.9 Anemia, unspecified; F15.10 Other stimulant abuse, uncomplicated; F17.210 Nicotine dependence, cigarettes, uncomplicated